=== PATIENT | male | born 1945 | race African-American/Black ===

== ENCOUNTER → 2017-07-20 | Outpatient (CLI) | payer OTHER ==
[2017-07-20 08:30] LABS: ALBUMIN 3.6 g/dL (3.4-5.0); ALBUMIN/GLOBULIN RATIO 0.8 (1.0-1.7); ALK PHOS 84 U/L (46-116); ALT (SGPT) 51 U/L (16-63); ANION GAP 11 (6-14); AST (SGOT) 40 U/L (15-37); BLOOD UREA NITROGEN 14 mg/dL (8-26); BUN/CREATININE RATIO 10 (6-20); CALCIUM 8.9 mg/dL (8.5-10.1); CARBON DIOXIDE 26 mmol/L (21-32); CHLORIDE 105 mmol/L (98-107); CHOLESTEROL 172 mg/dL (0-200); CREATININE 1.4 mg/dL (0.7-1.3); GFR 60.4; GLUCOSE 126 mg/dL (70-99); HDLC 56 mg/dL (40-60); LDLC 91 mg/dL (0-100); NON-HDL CHOLESTEROL 116 mg/dL (0-129); POTASSIUM 3.4 mmol/L (3.5-5.1); SODIUM 142 mmol/L (136-145); TOTAL BILIRUBIN 0.6 mg/dL (0.2-1.0); TOTAL PROTEIN 8.3 g/dL (6.4-8.2); TRIGLYCERIDES 123 mg/dL (0-150); VLDLC 25 mg/dL (0-40)
[2017-07-20 08:36] LABS: CHOLESTEROL/HDL RATIO 3.1
== END | disposition home or self-care (01) ==
LOC: RAD 07:52
DX: E78.5 Hyperlipidemia, unspecified (principal)
CPT/HCPCS: 36415; 80053; 80061

== ENCOUNTER → 2017-07-20 | Outpatient (CLI) | payer OTHER | END | disposition home or self-care (01) | LOC: ECHO 10:38 | DX: I11.9 Hypertensive heart disease without heart failure (principal); I35.1 Nonrheumatic aortic (valve) insufficiency; R09.89 Other specified symptoms and signs involving the circulatory and respiratory systems | CPT/HCPCS: 93306; 93880 ==

== ENCOUNTER → 2018-10-15 | Outpatient (CLI) | payer OTHER ==
[2015-05-11 10:49] VITALS: BP 140/77
[~2018-10-15] MED LIST: ALLO100T PO; CITA20TA9 PO; Doxycycline Hyclate PO; LISI-130 PO; OMEP20CA10 PO; SIMV20TA3 PO
--- NOTE | 2018-10-15 12:46 | RAD ---
MR#: [id number] Date of Study: 10/15/2018 Ordering Physician: TREVER SOSA, Referring Physician: JULIANE DE LA TORRE Tech: RT Nieves (R) (N) APPROVED REPORT Test Type: Exercise Stress Nurse/Tech: Shaila Barnhart R.N. Test Indications: dyspnea Cardiac History: htn, high cholesterol, Medications: See Electronic Medical Record Medical History: See Electronic Medical Record Resting ECG: SR w/ BBB, pvc's Resting Heart Rate: 77 bpm Resting Blood Pressure: 145/61mmHg Pretest Chest Pain: No chest pain Nurse/Tech Notes S1S2, murmur, lungs CTA Consent: The procedure was explained to the patient in lay terms. Informed consent was witnessed. Michael eout was entered into [employer]. History and Stress Test performed by ALEC Munoz ARRT (Kely) (N) Stress Symptoms SOB, fatigue- notified [facility] regarding ST changes and pt's scheduled colonoscopy this afternoon. we will have pt wait till cardialogy views the whole test results. POST EXERCISE Reason for Termination: Reached target heart rate Target HR: Yes Max HR: 126 bpm 100% of Maximum Predicted HR: 125 bpm Exercise duration: 3:01 min:sec, 1 Stage Exercise capacity: 4.6METs Max Blood Pressure: 163/61mmHg Blood Pressure response to exercise: Normal blood pressure response during stress. Heart Rate response to exercise: wnl Chest Pain: No. Arrhythmia: No. no new changes to above noted abnormal baseline ST Change: Yes. Non-specific st/t changes INTERPRETATION Stress EKG Conclusion: No evidence of stress induced EKG changes. Imaging Protocol IMAGE PROTOCOL: Rest Tc-99m/stress Tc-99m 1 day Rest: Stress: Viability: Radiopharm.Tc99m OpwabpdyqGg77u Sestamibi Bpkn28hZz 33mCi Duration 15min. 15min. Img Date 10/15/2018 10/15/2018 Inj-Img Vgkg83maf. 60min. Rest Admin Site:IV - Right HandAdministrator:ALEC Munoz ARRT (R)(N) Stress Admin Site: IV - Right HandAdministrator: Jennifer Zambrano, RT (R)(N) STRESS DATA End Diast. Vol.118.0mlAv. Heart Rate85.0bpm End Syst. Vol.37.0mlCO Index BSA0.0L/min Myocardial Mhvz801.0gEject. Ewhhdxbx34.0% Stress Rates Pk. Fill Rate3.18EDV/secLVtime Pk. Fill 150.95msec Pk. Empty Rate3.89ESV/secLVtime Pk. Rgzxl280.96msec 05/02 Pk. Fill1.93EDV/sec Stress Scores Regional WT1.00Summed WT3.00 Regional WM0.00Summed WM2.00 LV Perfusion There is a large sized, mostly FIXED inferior wall defect suggestive of prior infarct without active ischemia. Based on normal wall motion and lack of inferior Q waves on EKG, this may also be an artifa ct related to diaphgragmatic attenuation. Wall Motion Normal wall motion. EF 69%. LV Perf. Quant 17 Seg. SSS17.00 17 Seg. SRS13.00 17 Seg. SDS4.00 Stress Defect Extent (% LAD)28.10Rest Defect Extent (% LAD)15.00Rev. Defect Extent (% LAD)3.80 Stress Defect Extent (% LCX) 25.00Rest Defect Extent (% LCX)27.50Rev. Defect Extent (% LCX)6.30 Stress Defect Extent (% RCA)46.70Rest Defect Extent (% RCA)37.80Rev. Defect Extent (% RCA)12.20 Stress Defect Extent (% LUMA)34.60Rest Defect Extent (% LUMA)27.40Rev. Defect Extent (% LUMA)6.10 Other Information Quality:Average Risk Assessment: Moderate Risk Conclusion 1. No evidence of EKG changes with stress testing. 2. Large fixed inferior wall defect suggestive of prior infarct versus artifact. No ischemia. 3. Low risk study. 4. EF > 60%. Signed by : Trever Sosa, Electronically Approved : 10/15/2018 12:46:17
--- NOTE | 2018-10-15 13:08 | CARD ---
MR#: [id number] Date of Study: 10/15/2018 Ordering Physician: TREVER SOSA, Referring Physician: TREVER SOSA, Tech: Libby Foote APPROVED REPORT EXAM: Two-dimensional and M-mode echocardiogram with Doppler and color Doppler. Other Information Quality : FairHR: 70bpm INDICATION Valvular heart Disease Echo Enhancing Agent Indication: Endocardial border delineation Agent/Amount Used: Optison 10mL RISK FACTORS Hypertension Hyperlipidemia Previous smoker, Asthma 2D DIMENSIONS RVDd3.0 (2.9-3.5cm)Left Atrium(2D)3.8 (1.6-4.0cm) IVSd0.9 (0.7-1.1cm)Aortic Root(2D)3.0 (2.0-3.7cm) LVDd5.2 (3.9-5.9cm)LVOT Diameter2.0 (1.8-2.4cm) PWd0.9 (0.7-1.1cm)LVDs2.7 (2.5-4.0cm) FS (%) 45.3 %SV87.2 ml LVEF(%)76.5 (>50%) Aortic Valve AoV Peak Philip.202.9cm/sAoV VTI39.3cm AO Peak GR.16.5mmHgLVOT Peak Philip.111.5cm/s LVOT VTI 22.55cmAO Mean GR.8mmHg KEILA (VMAX)1.07yh4ERI (VTI)1.76cm2 AI P 1/2 Nzae565kk Mitral Valve MV E Rlkgoktc32.7cm/sMV DECEL PVHR163wi MV A Iwxvzqrr19.4cm/sMV XTK56qv E/A Ratio0.9MVA (PHT)3.81cm2 TDI E/Lateral E'12.2E/Medial E'9.7 Pulmonary Valve PV Peak Bqfbohlm850.9cm/sPV Peak Grad.6mmHg Tricuspid Valve TR P. Zhtsboay914vr/sRAP FAPGFMAS0vmMf TR Peak Gr.49zxAkZNIK81gtTl Pulmonary Vein S1 Cmjythuf68.4cm/sD2 Cxxrrwoi27.5cm/s PVa ptwrnuwk982zvpz LEFT VENTRICLE The left ventricle is normal size. There is borderline concentric left ventricular hypertrophy. The l eft ventricular systolic function is normal and the ejection fraction is within normal range. The Eje ction Fraction is 50-55%. There is normal LV segmental wall motion. Transmitral Doppler flow pattern is Grade II-pseudonormal filling dynamics. RIGHT VENTRICLE The right ventricle is borderline dilated. There is normal right ventricular wall thickness. The righ t ventricular systolic function is normal. ATRIA The left atrium size is normal. The right atrium size is normal. The interatrial septum is intact wit h no evidence for an atrial septal defect or patent foramen ovale as noted on 2-D or Doppler imaging. AORTIC VALVE The aortic valve is normal in structure and function. Doppler and Color Flow revealed trace aortic re gurgitation. There is no significant aortic valvular stenosis. MITRAL VALVE The mitral valve is normal in structure and function. There is no evidence of mitral valve prolapse. There is no mitral valve stenosis. Doppler and Color-flow revealed trace mitral regurgitation. TRICUSPID VALVE The tricuspid valve is normal in structure and function. Doppler and Color Flow revealed trace tricus pid regurgitation with an estimated PAP of 34 mmHg. There is no tricuspid valve prolapse or vegetatio n. There is no tricuspid valve stenosis. PULMONIC VALVE The pulmonic valve is not well visualized. Doppler and Color Flow revealed no pulmonic valvular regur gitation. GREAT VESSELS The aortic root is normal in size. The IVC is normal in size and collapses >50% with inspiration. PERICARDIAL EFFUSION There is no evidence of significant pericardial effusion. Critical Notification Critical Value: No <Conclusion> The left ventricular systolic function is normal and the ejection fraction is within normal range. Th e Ejection Fraction is 50-55%. There is normal LV segmental wall motion. Signed by : Trever Sosa, Electronically Approved : 10/15/2018 13:08:32
== END ==
LOC: NM 08:33
PROVIDERS: ATTEND Internal Medicine Cardiovascular Disease
DX: I38 Endocarditis, valve unspecified (principal); R06.00 Dyspnea, unspecified
CPT/HCPCS: 78452; 93017; A9500; C8929; Q9956; 96376

== ENCOUNTER → 2018-10-15 | Day surgery (SDC) | payer OTHER, MEDICARE ==
[~2018-10-15] MED LIST changes: +IV RINGERS,LACTATED 1000ML 1,000 ML IV SCH; +MEPERIDINE PF 25 MG/ML VIAL. IV ONE; +MEPERIDINE PF 25 MG/ML VIAL. ONE; +MIDAZOLAM HCL/PF 2 MG/2 ML VIAL. ONE; +MIDAZOLAM HCL/PF 5 MG/5 ML VIAL. IV ONE; +MIDAZOLAM HCL/PF 5 MG/5 ML VIAL. ONE; +PERFLUTREN PROTEIN-A MICROSPHR 0.22 MG/ML 3 ML VIAL. IV ONE; +diphenhydrAMINE 50 MG/ML VIAL IV ONE; +diphenhydrAMINE 50 MG/ML VIAL ONE; +fentaNYL PF VIAL 100 MCG/2 ML VIAL ONE
[2018-10-15 17:10] VITALS: BP 123/57
== END ==
LOC: ENDOS 15:05
PROVIDERS: ATTEND Internal Medicine Gastroenterology
DX: Z12.11 Encounter for screening for malignant neoplasm of colon (principal); K64.0 First degree hemorrhoids; K63.89 Other specified diseases of intestine; F41.9 Anxiety disorder, unspecified; K21.9 Gastro-esophageal reflux disease without esophagitis; F15.90 Other stimulant use, unspecified, uncomplicated; Z72.89 Other problems related to lifestyle; Z87.891 Personal history of nicotine dependence
CPT/HCPCS: 45378; J1200; J2175; J2250; Q9956; G0500; J3010